=== PATIENT | male | born 1995 | race Caucasian/White ===

== ENCOUNTER 2025-02-06 22:37 | Emergency (ER) | payer OTHER ==
[~2025-02-06] VITALS: Ht 165.1 cm; Wt 69.9 kg
[2025-02-06] MEDS ORDERED: LEVETIRACETAM (500MG) 500 MG/5 ML VIAL IV ONE (23:05)
[2025-02-06] MEDS: LEVETIRACETAM (500MG) 1,000 MG in IV NS 0.9% 90 ML IV SCH (23:06)
[2025-02-06 23:18] LABS: PLATELET COUNT (AUTO) 183 K/uL (150-450); RED BLOOD CELL COUNT(AUTO) 5.15 MIL/uL (4.5-6.0); RED CELL DISTRIBUTION WIDTH 15.8 % (11.5-15.0); WHITE BLOOD COUNT (AUTO) 5.4 K/uL (4.3-11.0)
[2025-02-06 23:26] LABS: CALCIUM, SERUM 9.1 mg/dL (8.5-10.1); CREATININE 1.0 mg/dL (0.6-1.3); SODIUM SERUM 142.0 mmol/L (136-145); UREA NITROGEN, BLOOD 5.0 mg/dL (7-18)
[2025-02-06 23:42] VITALS: BP 124/77; TEMP 98.3; O2SAT 97
== END 2025-02-07 00:05 | disposition home or self-care (01) ==
LOC: ER 22:53
DX: R56.9 Unspecified convulsions (principal); I10 Essential (primary) hypertension; E87.8 Other disorders of electrolyte and fluid balance, not elsewhere classified; Z87.820 Personal history of traumatic brain injury; Z91.148 Patient's other noncompliance with medication regimen for other reason
CPT/HCPCS: 99284; 96365; 93005; 85025; 80048; 36415; J7030; J1953